=== PATIENT | female | born 1955 | race Two or more races ===

== ENCOUNTER 2018-12-05 20:31 | Emergency (ER) | payer OTHER ==
--- NOTE | 2018-12-05 20:41 | PDOC ---
Rapid Medical Evaluation Time Seen by Provider: 12/05/18 20:38 Medical Evaluation: Allergies Allergy/AdvReac Type Severity Reaction Status Date / Time No Known Allergies Allergy Verified 07/08/15 19:56 12/05/18 20:39 I have performed a brief in-person evaluation of this patient. The patient presents with a chief complaint of:R knee pain x 1 week. No trauma, H/o HTN, HLD, trigeminal neuralgia, arthritis Pertinent physical exam findings:Stable but appears uncomfortable, sitting in W/ C, minimal swelling to R knee compared to L, no hot, red joint I have ordered the following:nothing The patient will proceed to the ED for further evaluation. Discharge Disposition - Diagnosis Knee pain Qualifiers: Chronicity: acute Laterality: right Qualified Code(s): M25.561 - Pain in right knee - Referrals - Patient Instructions - Post Discharge Activity
[2018-12-05 20:46] VITALS: BP 137/81; PULSE 98; TEMP 98; BMI 24.5
[2018-12-05] MEDS ORDERED: ACETAMINOPHEN 325 MG TABLET (FP) PO ONE (21:55)
[2018-12-05] MEDS ORDERED: ACETAMINOPHEN 325 MG TABLET (FP) ONE (22:23)
[2018-12-05 22:43] LABS: BASO % 0.4 % (0-2.0); EOS % 2.9 % (0-4.5); HEMATOCRIT 36.2 % (32.4-45.2); HEMOGLOBIN 12.1 GM/dL (10.7-15.3); LYMPH % 35.6 % (8-40); MCH 28.3 pg (25.7-33.7); MCHC 33.3 g/dl (32.0-36.0); MEAN CELL VOLUME 85.1 fl (80-96); MEAN PLT VOLUME 8.6 fl (7.5-11.1); MONO % 8.1 % (3.8-10.2); PLATELET COUNT 247 K/MM3 (134-434); RBC 4.26 M/mm3 (3.60-5.2); RDW 13.4 % (11.6-15.6)
--- NOTE | 2018-12-06 00:14 | PDOC ---
Documentation entered by John Lemus SCRIBE, acting as scribe for Brenda Nails MD. Brenda Nails MD: This documentation has been prepared by the Allan schultz Collisia, SCRIBE, under my direction and personally reviewed by me in its entirety. I confirm that the documentation accurately reflects all work, treatment, procedures, and medical decision making performed by me. History of Present Illness - General Chief Complaint: Pain Stated Complaint: R. PATELLA PAIN/NECK PAIN. R. FACIAL PAIN Time Seen by Provider: 12/05/18 20:38 History Source: Patient Exam Limitations: No Limitations - History of Present Illness Initial Comments: 12/05/18 22:36 The patient is a 62 year old female with a significant past medical history of hypertension and depression who presents to the emergency department with right knee pain for 2 weeks. The patient states that her right knee pain has been intermittent and severe. She reports inability to walk and apply pressure on her leg/knee secondary to pain. She states that she too ibuprofen prior to arrival to ed with no apparent relief. She denies any other symptoms or complaints. Past History - Past Medical History Allergies/Adverse Reactions: Allergies Allergy/AdvReac Type Severity Reaction Status Date / Time No Known Allergies Allergy Verified 07/08/15 19:56 Home Medications: Ambulatory Orders Amlodipine Besylate [Norvasc -] 5 mg PO DAILY 04/22/14 Alprazolam [Xanax -] 0.25 mg PO Q8H PRN #30 tablet 01/08/15 Ibuprofen [Motrin -] 600 mg PO TID #21 tablet 07/08/15 Omeprazole [Prilosec (RX)] 20 mg PO DAILY 07/08/15 HTN: Yes - Immunization History Immunization Up to Date: Yes - Suicide/Smoking/Psychosocial Hx Smoking Status: No Smoking History: Never smoked Number of Cigarettes Smoked Daily: 0 Hx Alcohol Use: Yes (occasion) Drug/Substance Use Hx: No Substance Use Type: None Hx Substance Use Treatment: No Review of Systems - Review of Systems Able to Perform ROS?: Yes Comments:: 12/05/18 22:37 GENERAL/CONSTITUTIONAL: No fever or chills. No weakness. HEAD, EYES, EARS, NOSE AND THROAT: No change in vision. No ear pain or discharge. No sore throat. CARDIOVASCULAR: No chest pain or shortness of breath. RESPIRATORY: No cough, wheezing, or hemoptysis. GASTROINTESTINAL: No nausea, vomiting, diarrhea or constipation. GENITOURINARY: No dysuria, frequency, or change in urination. MUSCULOSKELETAL: (+)right knee pain and swelling. No neck or back pain. SKIN: No rash NEUROLOGIC: No headache, vertigo, loss of consciousness, or change in strength/ sensation. ENDOCRINE: No increased thirst. No abnormal weight change. HEMATOLOGIC/LYMPHATIC: No anemia, easy bleeding, or history of blood clots. ALLERGIC/IMMUNOLOGIC: No hives or skin allergy. *Physical Exam - Vital Signs Last Vital Signs Temp Pulse Resp BP Pulse Ox 98 F 98 H 19 137/81 98 12/05/18 20:44 12/05/18 20:44 12/05/18 20:44 12/05/18 20:44 12/05/18 20:44 - Physical Exam Comments: 12/05/18 22:36 GENERAL: Awake, alert, and fully oriented, in no acute distress HEAD: No signs of trauma EYES: PERRLA, EOMI, sclera anicteric, conjunctiva clear ENT: Auricles normal inspection, hearing grossly normal, nares patent, oropharynx clear without exudates. Moist mucosa NECK: Normal ROM, supple, no lymphadenopathy, JVD, or masses LUNGS: Breath sounds equal, clear to auscultation bilaterally. No wheezes, and no crackles HEART: Regular rate and rhythm, normal S1 and S2, no murmurs, rubs or gallops ABDOMEN: Soft, nontender, normoactive bowel sounds. No guarding, no rebound. No masses EXTREMITIES: (+)right knee swelling with ballottement of patella, valgus stress pain. Anterior and posterior draw signs normal. No calf swelling, skin color change, redness, or deformity. No clubbing or cyanosis. No cords, tenderness NEUROLOGICAL: Cranial nerves II through XII grossly intact. Normal speech, normal gait SKIN: Warm, Dry, normal turgor, no rashes or lesions noted. ED Treatment Course - LABORATORY CBC & Chemistry Diagram: 12/05/18 22:00 - ADDITIONAL ORDERS Additional order review: 12/05/18 22:00 RBC 4.26 MCV 85.1 MCHC 33.3 RDW 13.4 MPV 8.6 Neutrophils % 53.0 Lymphocytes % 35.6 D Monocytes % 8.1 Eosinophils % 2.9 Basophils % 0.4 - RADIOLOGY Radiology Studies Ordered: Category Date Time Status KNEE 2 POS-RIGHT [RAD] Stat Radiology 12/05/18 21:56 Taken DUPLEX VASCUL US-1 LEG [US] Stat Ultrasound 12/05/18 22:06 Ordered - Medications Given in the ED: ED Medications Discontinued Medications Generic Name Dose Route Start Last Admin Trade Name Lana PRN Reason Stop Dose Admin Acetaminophen 650 mg 12/05/18 21:55 12/05/18 22:33 Tylenol - PO 12/05/18 21:56 650 mg ONCE ONE Administration Oxycodone/Acetaminophen 1 combo 12/05/18 21:54 12/05/18 22:31 Percocet 5/325 - PO 12/05/18 21:55 1 combo ONCE ONE Administration Medical Decision Making - Medical Decision Making 12/05/18 23:33 WBC, UA and crp are normal 12/06/18 03:16 XR sono normal Sed rate normal. Pt likely experiencing knee pain because she walks in her flat UGG boots 2-3 times per week. She was advised to wear sneakers with good arch support. She will also follow with ortho for knee MRI. She was given knee immobilizer and crutches. *DC/Admit/Observation/Transfer Diagnosis at time of Disposition: Arthritis Knee pain Qualifiers: Chronicity: acute Laterality: right Qualified Code(s): M25.561 - Pain in right knee - Discharge Dispostion Disposition: HOME Condition at time of disposition: Stable Decision to Admit order: No - Referrals Referrals: Noelle Randolph MD [Primary Care Provider] - Kuldeep Mcnamara MD [Staff Physician] - Emmy Chilel MD [Staff Physician] - - Patient Instructions - Post Discharge Activity
== END 2018-12-05 22:55 | disposition home or self-care (01) ==
LOC: JER 20:31
DX: M19.90 Unspecified osteoarthritis, unspecified site (principal); M25.561 Pain in right knee; I10 Essential (primary) hypertension; F32.9 Major depressive disorder, single episode, unspecified
CPT/HCPCS: 36415; 73560-TC-RT-FY; 84550; 85025; 85651; 86140; 93971-TC; 99283-25